=== PATIENT | male | born 1950 | race Asian ===

== ENCOUNTER 2019-08-12 01:08 | Inpatient (IN) | payer BC ==
[~2019-08-12] VITALS: Ht 170.2 cm; Wt 68.9 kg
[2019-08-12 01:10] VITALS: BP_SYST 156
[2019-08-12] MEDS ORDERED: IPRATROPIUM/ALBUTEROL SULFATE 3 ML AMPUL.NEB (DUONEB) INH ONE (01:30)
[2019-08-12 02:12] LABS: BASOPHILS # (AUTO) 0.1 K/uL (0.0-0.2); BASOPHILS % (AUTO) 0.7 % (0.0-2.0); EOSINOPHILS # (AUTO) 0.2 K/uL (0.0-0.4); EOSINOPHILS % (AUTO) 1.7 % (0.0-4.0); HEMATOCRIT 33.5 % (36-54); HEMOGLOBIN 11.1 g/dL (14.0-18.0); LYMPHOCYTES % (AUTO) 9.2 % (20.5-51.5); MEAN CORPUSCULAR HEMOGLOBIN 30 pg (27-31); MEAN CORPUSCULAR HGB CONC 33 % (32-36); MEAN CORPUSCULAR VOLUME 92 fL (79.0-98.0); MONOCYTES # (AUTO) 0.9 K/uL (0.0-1.0); MONOCYTES % (AUTO) 7.7 % (1.7-9.3); NEUTROPHILS % (AUTO) 80.7 % (40.0-70.0); PLATELET COUNT (AUTO) 364 K/uL (130-430); RED BLOOD CELL COUNT(AUTO) 3.66 MIL/uL (4.2-6.2); RED CELL DISTRIBUTION WIDTH 15.8 % (9.0-15.0); WHITE BLOOD COUNT (AUTO) 11.2 K/uL (4.8-10.8)
[2019-08-12 02:25] LABS: CALCIUM 8.7 mg/dL (8.4-11.0); CREATININE 1.03 mg/dL (0.55-1.30); POTASSIUM 4.1 mmol/L (3.5-5.1)
[2019-08-12] MEDS ORDERED: LEVO100T9 PO (02:28)
[2019-08-12] MEDS ORDERED: LEVO25TA7 PO (02:28)
[2019-08-12 02:32] LABS: ALBUMIN 3.2 g/dL (3.4-4.8); TOTAL BILIRUBIN 0.5 mg/dL (0.0-1.0)
[2019-08-12] MEDS ORDERED: IOHEXOL 350 mgI/mL, 150 ML INFUS..BTL IV ONE (04:25)
[2019-08-12] MEDS ORDERED: LIP80 PO (04:36)
[2019-08-12] MEDS ORDERED: TRIMETAZIDINE PO (04:36)
[2019-08-12] MEDS ORDERED: ASPI-1153 PO (04:36)
[2019-08-12] MEDS ORDERED: TRAM-350 PO (04:36)
[2019-08-12] MEDS ORDERED: CLOP75TA32 PO (04:37)
[2019-08-12] MEDS ORDERED: VERA180T11 PO (04:37)
[2019-08-12] MEDS ORDERED: CALCIUM CARBONATE PO (04:37)
[2019-08-12] MEDS ORDERED: [UNRECOGNIZED DRUG - OTHER] (04:37)
[2019-08-12] MEDS ORDERED: POTA8TAB4 PO (04:37)
[2019-08-12] MEDS ORDERED: SPIR25TA6 PO (04:37)
[2019-08-12] MEDS ORDERED: PRO40 PO (04:37)
[2019-08-12] MEDS ORDERED: TOPXL100 PO (04:37)
[2019-08-12] MEDS ORDERED: RANI-362 PO (04:37)
[2019-08-12] MEDS ORDERED: LOSA50TA3 PO (04:37)
[2019-08-12] MEDS ORDERED: [UNRECOGNIZED DRUG - OTHER] PO (04:37)
[2019-08-12] MEDS ORDERED: cefTRIAXone 1 GM IVPB PREMIX 50 ML IV ONE (06:00)
[2019-08-12] MEDS ORDERED: AZITHROMYCIN 250 MG TABLET PO ONE (06:00)
[2019-08-12 07:10] VITALS: BP_SYST 135
[2019-08-12] MEDS ORDERED: ONDANSETRON HCL 4 MG/2 ML VIAL IVP PRN (07:15)
[2019-08-12] MEDS ORDERED: ALBUTEROL SULFATE 0.083% 2.5 MG/3 ML VIAL.NEB INH PRN (07:15)
[2019-08-12] MEDS ORDERED: ACETAMINOPHEN 325 MG TABLET PO PRN (07:15)
[2019-08-12] MEDS ORDERED: MORPHINE 2 MG/ML INJ. SYRINGE IVP PRN ×2 (07:15)
[2019-08-12 08:00] VITALS: BP_SYST 135
[2019-08-12] MEDS ORDERED: PIPERACILLIN/TAZO 3.375/DEX-IS 50 ML IV ONE (08:00)
[2019-08-12] MEDS ORDERED: LEVOTHYROXINE SODIUM 0.1 MG TABLET PO SCH (09:00)
[2019-08-12] MEDS ORDERED: VERAPAMIL HCL 180 MG TABLET.SA PO SCH (09:00)
[2019-08-12] MEDS: METOPROLOL SUCCINATE 50 MG TAB.SR.24H (TOPROL XL) PO SCH (09:16)
[2019-08-12] MEDS: SPIRONOLACTONE 25 MG TABLET (ALDACTONE) PO SCH (09:17)
[2019-08-12] MEDS: ASPIRIN 81 MG TABLET(ECOTRIN) PO SCH (09:17)
[2019-08-12] MEDS: CLOPIDOGREL BISULFATE 75 MG TABLET PO SCH (09:17)
[2019-08-12] MEDS: PANTOPRAZOLE SODIUM 40 MG TAB PO SCH (09:18)
[2019-08-12] MEDS: LOSARTAN POTASSIUM 50 MG TABLET (COZAAR) PO SCH (09:18)
[2019-08-12] MEDS: ATORVASTATIN 20 MG TABLET PO SCH (09:19)
[2019-08-12] MEDS: NACL 0.9% 1,000 ML IV SCH ×2 (09:41→23:57)
[2019-08-12] MEDS: AZITHROMYCIN 250 MG in NS 250 ML IV SCH (10:24)
[2019-08-12] MEDS: cefTRIAXone 1 GM IVPB PREMIX 50 ML IV SCH (10:29)
[2019-08-12 12:00] VITALS: BP_SYST 121
[2019-08-12] MEDS ORDERED: PIPERACILLIN/TAZO 3.375/DEX-IS 50 ML IV SCH (14:00)
[2019-08-12 16:02] VITALS: BP_SYST 113
[2019-08-12] MEDS ORDERED: ALLO100T PO (18:06)
[2019-08-12] MEDS ORDERED: [UNRECOGNIZED DRUG - OTHER] (18:06)
[2019-08-12 19:30] VITALS: BP_SYST 120
[2019-08-13] VITALS: BP_SYST 130
[2019-08-13] MEDS: LEVOTHYROXINE SODIUM 0.075 MG TABLET PO SCH (06:01)
[2019-08-13 07:28] LABS: BASOPHILS % (AUTO) 0.5 % (0.0-2.0); EOSINOPHILS # (AUTO) 0.3 K/uL (0.0-0.4); EOSINOPHILS % (AUTO) 4.3 % (0.0-4.0); HEMOGLOBIN 10.2 g/dL (14.0-18.0); LYMPHOCYTES % (AUTO) 16.1 % (20.5-51.5); MEAN CORPUSCULAR HEMOGLOBIN 31 pg (27-31); MEAN CORPUSCULAR HGB CONC 34 % (32-36); MEAN CORPUSCULAR VOLUME 91 fL (79.0-98.0); MONOCYTES # (AUTO) 0.6 K/uL (0.0-1.0); MONOCYTES % (AUTO) 9.3 % (1.7-9.3); NEUTROPHILS # (AUTO) 4.4 K/uL (1.8-7.7); NEUTROPHILS % (AUTO) 69.8 % (40.0-70.0); PLATELET COUNT (AUTO) 294 K/uL (130-430); RED BLOOD CELL COUNT(AUTO) 3.29 MIL/uL (4.2-6.2); RED CELL DISTRIBUTION WIDTH 15.5 % (9.0-15.0)
[2019-08-13 07:34] LABS: ALBUMIN 2.8 g/dL (3.4-4.8); CALCIUM 8.6 mg/dL (8.4-11.0); CREATININE 0.82 mg/dL (0.55-1.30); POTASSIUM 3.7 mmol/L (3.5-5.1); TOTAL BILIRUBIN 0.6 mg/dL (0.0-1.0)
[2019-08-13 07:43] LABS: WHITE BLOOD COUNT (AUTO) 6.3 K/uL (4.8-10.8)
[2019-08-13 08:00] VITALS: BP_SYST 141
[2019-08-13] MEDS: LOSARTAN POTASSIUM 50 MG TABLET (COZAAR) PO SCH (08:30)
[2019-08-13] MEDS: CLOPIDOGREL BISULFATE 75 MG TABLET PO SCH (08:30)
[2019-08-13] MEDS: ASPIRIN 81 MG TABLET(ECOTRIN) PO SCH (08:30)
[2019-08-13] MEDS: ATORVASTATIN 20 MG TABLET PO SCH (08:30)
[2019-08-13] MEDS: PANTOPRAZOLE SODIUM 40 MG TAB PO SCH (08:31)
[2019-08-13] MEDS: SPIRONOLACTONE 25 MG TABLET (ALDACTONE) PO SCH (08:31)
[2019-08-13] MEDS: METOPROLOL SUCCINATE 50 MG TAB.SR.24H (TOPROL XL) PO SCH (08:31)
[2019-08-13] MEDS: VERAPAMIL HCL 120 MG TABLET.SA PO SCH (08:32)
[2019-08-13] MEDS: cefTRIAXone 1 GM IVPB PREMIX 50 ML IV SCH (08:36)
[2019-08-13] MEDS ORDERED: LEVOTHYROXINE SODIUM 0.025 MG TABLET PO SCH (09:00)
[2019-08-13] MEDS ORDERED: IPRATROPIUM/ALBUTEROL SULFATE 3 ML AMPUL.NEB (DUONEB) INH PRN (11:00)
[2019-08-13] MEDS: AZITHROMYCIN 250 MG in NS 250 ML IV SCH (11:07)
[2019-08-13] MEDS: NACL 0.9% 1,000 ML IV SCH (11:07)
[2019-08-13 12:00] VITALS: BP_SYST 132
[2019-08-13] MEDS: PIPERACILLIN/TAZO 3.375/DEX-IS 50 ML IV SCH ×2 (12:30→19:20)
[2019-08-13] MEDS ORDERED: BARIUM SULFATE 135 ML SUSP.RECON (E-Z-HD) PO ONE (13:28)
[2019-08-13 16:00] VITALS: BP_SYST 138
[2019-08-13 20:00] VITALS: BP_SYST 122
[2019-08-14 00:27] VITALS: BP_SYST 126
[2019-08-14] MEDS: PIPERACILLIN/TAZO 3.375/DEX-IS 50 ML IV SCH ×3 (00:53→12:05)
[2019-08-14] MEDS: NACL 0.9% 1,000 ML IV SCH (00:53)
[2019-08-14] MEDS: LEVOTHYROXINE SODIUM 0.075 MG TABLET PO SCH (05:58)
[2019-08-14 08:00] VITALS: BP_SYST 153
[2019-08-14] MEDS: SPIRONOLACTONE 25 MG TABLET (ALDACTONE) PO SCH (08:50)
[2019-08-14] MEDS: VERAPAMIL HCL 120 MG TABLET.SA PO SCH (08:51)
[2019-08-14] MEDS: ATORVASTATIN 20 MG TABLET PO SCH (08:52)
[2019-08-14] MEDS: LOSARTAN POTASSIUM 50 MG TABLET (COZAAR) PO SCH (08:52)
[2019-08-14] MEDS: CLOPIDOGREL BISULFATE 75 MG TABLET PO SCH (08:52)
[2019-08-14] MEDS: ASPIRIN 81 MG TABLET(ECOTRIN) PO SCH (08:52)
[2019-08-14] MEDS: PANTOPRAZOLE SODIUM 40 MG TAB PO SCH (08:53)
[2019-08-14] MEDS: METOPROLOL SUCCINATE 50 MG TAB.SR.24H (TOPROL XL) PO SCH (08:53)
[2019-08-14] MEDS: AZITHROMYCIN 250 MG in NS 250 ML IV SCH (08:54)
[2019-08-14] MEDS ORDERED: NACL 0.9% 1,000 ML IV SCH (10:45)
[2019-08-14 12:34] VITALS: BP_SYST 135
[2019-08-14] MEDS ORDERED: AMOX-426 PO (15:14)
[2019-08-14] MEDS ORDERED: ALBMDI INH (15:14)
[2019-08-14 16:10] VITALS: BP_SYST 122
== END 2019-08-14 16:45 | disposition home or self-care (01) | DRG 177 ==
LOC: SED 01:08 → STU 06:00
PROVIDERS: ADMIT Internal Medicine Hospice and Palliative Medicine; ATTEND Internal Medicine Hospice and Palliative Medicine
DX: J69.0 Pneumonitis due to inhalation of food and vomit (principal); I71.01 Dissection of thoracic aorta; E44.1 Mild protein-calorie malnutrition; J38.01 Paralysis of vocal cords and larynx, unilateral; I35.1 Nonrheumatic aortic (valve) insufficiency; I12.9 Hypertensive chronic kidney disease with stage 1 through stage 4 chronic kidney disease, or unspecified chronic kidney disease; E03.9 Hypothyroidism, unspecified; E78.5 Hyperlipidemia, unspecified; I25.10 Atherosclerotic heart disease of native coronary artery without angina pectoris; N18.9 Chronic kidney disease, unspecified; Z86.79 Personal history of other diseases of the circulatory system; Z83.3 Family history of diabetes mellitus; Z82.49 Family history of ischemic heart disease and other diseases of the circulatory system; Z68.23 Body mass index [BMI] 23.0-23.9, adult; Z79.899 Other long term (current) drug therapy
CPT/HCPCS: 36415; 71045; 71275; 74230; 80053; 82550-TC; 83880; 84484; 85025; 85379; 87040-TC; 87081; 92610-GN; 92611-GN; 93005; 93306; 93970; 94640; 94760; 96365; 99285; G0378; J0456; J0696; J2543; J7030; J7050; J7620; Q0144; Q9967